=== PATIENT | female | born 1975 | race Caucasian/White ===

== ENCOUNTER 2018-08-24 14:49 | Emergency (ER) | payer OTHER ==
[2018-08-24 14:55] VITALS: BP 135/64; PULSE 95; RESP 18; TEMP 97.7
[2018-08-24] MEDS ORDERED: KETOROLAC 60 MG/2 ML VIAL IM STA (15:21)
[2018-08-24] MEDS ORDERED: DIAZEPAM 2 MG TAB PO STA (15:21)
--- NOTE | 2018-08-24 16:00 | XR ---
EXAMINATION TYPE: XR lumbar spine 2 or 3V DATE OF EXAM: 08/24/2018 CLINICAL HISTORY: Back pain after fall TECHNIQUE: Frontal and lateral images of the lumbar spine are obtained. COMPARISON: None FINDINGS: There are 5 lumbar type vertebral bodies identified. The lumbar spine shows satisfactory alignment without evidence of acute fracture or dislocation. Vertebral body heights and disk space he ights are within normal limits. The overlying soft tissue appears unremarkable. IMPRESSION: No acute fracture or malalignment is seen in the lumbar spine.
--- NOTE | 2018-08-24 16:29 | ED ---
General Adult HPI - General Chief complaint: Back Pain/Injury Stated complaint: Back injury Source: patient, RN notes reviewed, old records reviewed Mode of arrival: ambulatory Limitations: no limitations - History of Present Illness Initial comments: 42-year-old female patient presents to ED after sustaining fall last night. Patient states that she was walking up her stairs, and the second stair she slipped fell backwards landing on her pelvis. Patient denies head or neck trauma, loss of consciousness. Patient denies use of blood thinners. Patient has a history of lower back pain, denies prior surgery. Patient states that this fall exacerbated her lumbar back pain, patient reports having pain radiating down her right posterior leg. Patient denies new weakness, paresthesias, saddle anesthesia, loss of bowel or bladder control, fever or chills, IV drug use, history of vertebral fracture. Patient has no other complaints. Patient got a ride up to to ED and will not be driving home. Systemic: Pt denies fatigue, myalgia, fever/chills, rash. Pt denies weakness, night sweats, weight loss. Neuro: Pt denies headache, visual disturbances, syncope or pre-syncope. HEENT: Pt denies ocular discharge or irritation, otalgia, rhinorrhea, pharyngitis or notable lymphadenopathy. Cardiopulmonary: Pt denies chest pain, SOB, heart palpitations, dyspnea on exertion. Abdominal/GI: Pt denies abdominal pain, n/v/d. : Pt denies dysuria, burning w/ urination, frequency/urgency. Denies new onset urinary or bowel incontinence. MSK: Pt denies myalgia, loss of strength or function in extremities. - Related Data Previous Rx's Medication Instructions Recorded Cyclobenzaprine [Flexeril] 1 - 2 tab PO TID #20 tablet 08/24/18 Ibuprofen [Motrin] 600 mg PO Q6HR PRN #20 day 08/24/18 Allergies Allergy/AdvReac Type Severity Reaction Status Date / Time No Known Allergies Allergy Verified 08/24/18 14:55 Review of Systems ROS Statement: Those systems with pertinent positive or pertinent negative responses have been documented in the HPI. ROS Other: All systems not noted in ROS Statement are negative. Past Medical History Past Medical History: No Reported History History of Any Multi-Drug Resistant Organisms: None Reported Past Surgical History: Tonsillectomy Past Psychological History: Anxiety Smoking Status: Current every day smoker Past Alcohol Use History: Occasional Past Drug Use History: None Reported General Exam - General Exam Comments Initial Comments: Constitutional: NAD, AOX3, Pt has pleasant affect. HEENT: NC/AT, trachea midline, neck supple, no lymphadenopathy. Posterior pharynx non erythematous, without exudates. External ears appear normal, without discharge. Mucous membranes moist. Eyes PERRLA, EOM intact. There is no scleral icterus. No pallor noted. Cardiopulmonary: RRR, no murmurs, rubs or gallops, no JVD noted. Lungs CTAB in anterior and posterior robin. No peripheral edema. Abdominal exam: Abdomen soft and non-distended. Abdomen non-tender to palpation in all 4 quadrants. Bowel sounds active in LLQ. No hepatosplenomegaly. Neuro: CN II-XII intact. MSK: Flexion of lumbar spine decreased secondary to pain. No midline spinal tenderness. Right lumbar paraspinal tenderness. Psoas strength and quadriceps strength 5 out of 5 bilaterally. Achilles and patellar reflex 2/4 bilaterally. The toe walking intact. Patient is ambulatory. No ecchymosis or deformities noted on MSK exam. Limitations: no limitations Course Vital Signs 08/24/18 14:52 Temperature 97.7 F Pulse Rate 95 Respiratory 18 Rate Blood Pressure 135/64 O2 Sat by Pulse 100 Oximetry Medical Decision Making - Medical Decision Making 42-year-old female patient presents to ED after sustaining fall last night. Patient states that she was walking up her stairs, and the second stair she slipped fell backwards landing on her pelvis. Patient denies head or neck trauma, loss of consciousness. Patient denies use of blood thinners. Patient has a history of lower back pain, follows up with chiropractic, denies prior surgery. Patient states that this fall exacerbated her lumbar back pain, patient reports having pain radiating down her right posterior leg. Patient denies new weakness, paresthesias, saddle anesthesia, loss of bowel or bladder control, fever or chills, IV drug use, history of vertebral fracture. Flexion of lumbar spine decreased secondary to pain. No midline spinal tenderness. Right lumbar paraspinal tenderness. Psoas strength in quadriceps strength 5 out of 5 bilaterally. Achilles and patellar reflex 2/4 bilaterally. The toe walking intact. Patient is ambulatory. Plain film of lumbar spine did not display acute fracture or pathology. Pt received flexeril and toradol in ED, experienced significant relief of symptoms. Pt to be dc with flexeril and ibuprofen/ Strict return parameters discussed including: new weakness, paresthesias, saddle anesthesia, loss of bowel or bladder control, fever or chills, or any other new symptoms. Pt to f/u with PCP and orthopedic consult in 1-2 days. Case discussed with Dr. Jackson. Disposition Clinical Impression: Strain of lumbar region Disposition: HOME SELF-CARE Condition: Good Instructions: Low Back Strain (ED) Additional Instructions: Patient to adhere to previously discussed treatment plan and will take medication(s) as directed. Patient to follow up with PCP in 1-2 days. Patient to return to ED if symptoms do not improve. Prescriptions: Cyclobenzaprine [Flexeril] 1 - 2 tab PO TID #20 tablet Ibuprofen [Motrin] 600 mg PO Q6HR PRN #20 day PRN Reason: Pain Is patient prescribed a controlled substance at d/c from ED?: No Referrals: oHlden Diaz DO [Primary Care Provider] - 1-2 days Souleymane Cadet DO [Doctor of Osteopathic Medicine] - 1-2 days Time of Disposition: 16:38
== END 2018-08-24 16:41 | disposition home or self-care (01) ==
LOC: EC 14:49
DX: S39.012A Strain of muscle, fascia and tendon of lower back, initial encounter (principal); F17.200 Nicotine dependence, unspecified, uncomplicated; W10.9XXA Fall (on) (from) unspecified stairs and steps, initial encounter; Y92.009 Unspecified place in unspecified non-institutional (private) residence as the place of occurrence of the external cause; Y93.01 Activity, walking, marching and hiking
CPT/HCPCS: 72100; 99284; 96372; J1885